=== PATIENT | female | born 1970 | race Caucasian/White ===

== ENCOUNTER 2021-08-09 00:53 | Emergency (ER) | payer SELFPAY ==
[2021-08-09] MEDS ORDERED: Lidocaine 1% PF 5 ML VIAL ONE (01:10)
[2021-08-09] MEDS ORDERED: Sulfameth/Trimethoprim DS 800-160mg TAB ONE (01:27)
[2021-08-09] MEDS ORDERED: Cephalexin 250 MG CAP ONE (01:27)
== END 2021-08-09 01:36 | disposition home or self-care (01) ==
LOC: BURERS 00:53
DX: L03.011 Cellulitis of right finger (principal); E66.9 Obesity, unspecified
CPT/HCPCS: 26011